=== PATIENT | male | born 1995 | race Caucasian/White ===

== ENCOUNTER 2018-03-17 05:49 | Emergency (ER) | payer OTHER ==
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
[2018-03-17 06:32] LABS: ABSOLUTE MONOCYTES (AUTO) 0.3 10^3/uL (0.1-1.4); ABSOLUTE NEUT (AUTO) 5.2 10^3/uL (1.7-8.2); HEMATOCRIT 43.2 % (37.9-51.0); TOTAL CELLS COUNTED % (AUTO) 100 %
[2018-03-17 06:39] LABS: APPEARANCE,URINE CLEAR; BILIRUBIN,URINE NEGATIVE (NEGATIVE); COLOR,URINE STRAW; GLUCOSE, URINE NEGATIVE (NEGATIVE); KETONES,URINE NEGATIVE (NEGATIVE); LEUKOCYTE ESTERASE,URINE NEGATIVE (NEGATIVE); NITRITE,URINE NEGATIVE (NEGATIVE); PROTEIN,URINE NEGATIVE (NEGATIVE); URINE SPECIFIC GRAVITY 1.003; UROBILINOGEN,URINE NEGATIVE mg/dL (<2.0)
[2018-03-17 06:43] LABS: ABSOLUTE LYMPHOCYTES (AUTO) 1.7 10^3/uL (0.5-4.7); BASOPHILS % (AUTO) 0.2 % (0-2); EOSINOPHILS % (AUTO) 0.3 % (0-6); HEMOGLOBIN 15.5 g/dL (13.5-17.0); LYMPHOCYTES % (AUTO) 23.3 % (13-45); MEAN CORPUSCULAR HEMOGLOBIN 30.4 pg (27.0-33.4); MEAN CORPUSCULAR HGB CONC 35.9 g/dL (32.0-36.0); MEAN CORPUSCULAR VOLUME 85 fl (80-97); MONOCYTES % (AUTO) 4.2 % (3-13); PLATELET COUNT 223 10^3/uL (150-450); RED CELL DISTRIBUTION WIDTH 12.9 % (11.5-14.0); WHITE BLOOD COUNT 7.2 10^3/uL (4.0-10.5)
[2018-03-17 06:50] LABS: ALANINE AMINOTRANSFERASE 45 U/L (21-72); ALBUMIN 5.2 g/dL (3.5-5.0); ALCOHOL 121 mg/dL (NONE DETECTED); ALKALINE PHOSPHATASE 81 U/L (38-126); ANION GAP 13 (5-19); ASPARTATE AMINO TRANSFERASE 32 U/L (17-59); BILIRUBIN,DIRECT 0.2 mg/dL (0.0-0.4); BILIRUBIN,TOTAL 0.4 mg/dL (0.2-1.3); BLOOD UREA NITROGEN 13 mg/dL (7-20); CALCIUM 10.1 mg/dL (8.4-10.2); CARBON DIOXIDE 26 mmol/L (22-30); CHLORIDE 107 mmol/L (98-107); GLUCOSE 97 mg/dL (75-110); POTASSIUM 4.1 mmol/L (3.6-5.0); TOTAL PROTEIN 8.1 g/dL (6.3-8.2)
[2018-03-17 06:56] LABS: ACETAMINOPHEN < 10 ug/mL (10-30); SALICYLATE < 1.0 mg/dL (2.0-20.0)
[2018-03-17 06:59] LABS: URINE AMPHETAMINES SCREEN NEGATIVE; URINE BARBITURATES SCREEN NEGATIVE; URINE BENZODIAZEPINES SCREEN NEGATIVE; URINE COCAINE SCREEN NEGATIVE; URINE MARIJUANA (THC) SCREEN NEGATIVE; URINE METHADONE SCREEN NEGATIVE; URINE PHENCYCLIDINE SCREEN NEGATIVE
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
--- NOTE | 2018-03-17 08:49 | EKG REPORT ---
SEVERITY:- NORMAL ECG - SINUS RHYTHM : Confirmed by: Neymar Douglass MD 17-Mar-2018 08:48:36
[2018-03-17] MEDS ORDERED: ONDANSETRON 4 MG TAB.RAPDIS ONE (10:24)
--- NOTE | 2018-03-17 10:26 | PSYCHOLOGICAL NOTE ---
Psych Note - Psych Note Date seen by psych provider: 03/17/18 Time seen by psych provider: 08:50 Psych Note: Reason for Consult: Suicide attempt Patient arrived to [facility] via EMS. Patient is active duty [employer]. He attempted to kill himself by joining multple zip strips and putting around his neck and tightened. This resulted on a blood nose and petechiae on his face. Patient did cut himself loose just before passing out. Patient disclosed he came to [facility] via EMS after his called 911. He reports that when police arrived, they are the ones that called EMS. He states that he attempted to commit suicide by joining 3 zip ties together and putting around his throat. He confirms he started drinking at approximately midnight after unsuccessfully attempting to picker tender his . He states he has been sick all week with the flu, she reported that she was going to go visit a friend. He reports this friend, Lukas,is a friend he does not really know and feels that his is being unfaithful. He reports that he was texting with Lukas and was told that he (the patient) was "walking on eggs shells" that his wanted to get . He reports that he was shocked because he never heard this before from her. He reports that he text back it would be easier than if she was just a . He states that at that point he was not thinking of harming himself he was just saying that to see if they were actually together. He reports that it was confirmed they were together when he immediately received a text message from her. At that point he became overwhelmed and felt "worthless." He reports that he had tightened the zip strips up until he heard a knock at the door. He reports that he is not exactly sure what happened however something snapped in him telling him that it was "not the right decision." He reports that he was trying to find something to cut open the zip ties. First he attempted using a pocket knife however was unsuccessful so had to find scissors. He reports that just prior to finding the scissors was when his nose started to bleed. He reports he did successfully get zip ties off of his neck. He states he feels "ashamed" and knows that alcohol up played "an effect into it." He reports that he does not drink often maybe 1 beer every 2 weeks or so. He disclosed that he used to be a big drinker while station [facility] between June 2015 to June 2017. He states that he was in "[employer] training" in [facility] which last in 1 week. He states that he felt that it really helped him. He described the events that led him to that training, reporting that he was highly intoxicated and wanted to go for a run. He reports that he got into his PT gear and was trying to leave. He states "they" were attempting to stop him from leaving. He became angry so he decided he was going to try to go out the window. He reports that he was so intoxicated that he did not really think about the fact he was on the fourth floor. "They took that as an attempt" of him trying to harm himself from jumping out the window. He reports that this is the first time he consciously attempted to harm himself however is glad that he is not seriously injured; "but I know I look horrible right now." Patient is alert and orientated to person, place, time and circumstance. Mood is dysphoric with overall blunted affect; does get tearful at times. Patient admits to attempting to strangle himself with intent to kill. Patient denies homicidal ideation. Delusions are absent behaviors congruent with an intact reality based presentation i.e. organized linear thought process. Eye contact is fair. Conversational speech is within normal rate, tone and prosody. Intellectual abilities appear to be within the average range. Attention and concentration are fair. Insight, judgment, impulse control are fair. No medication recommendations at this time 311 (F32.9) unspecified depressive disorder 291.9 (F10.99) unspecified alcohol related disorder Impression\\plan: Patient is recommended for IVC. Patient admits to attempting to kill himself by strangulation. Will patient discusses remorse and being glad he was unsuccessful patient clearly needs treatment assistance. Patient is active duty and became of his serious attempt at killing himself, he will be transferred to [facility] for psychiatric treatment. Dr. Vásquez of [facility] accepted patient as medical; transportation will occur today. Dr. Campuzano was consulted and the care management of this patient; attending physician agreement with recommendations and disposition.
[2018-03-17 12:22] VITALS: BP 126/83
== END 2018-03-17 12:52 ==
LOC: ER 05:49
DX: T71.192A Asphyxiation due to mechanical threat to breathing due to other causes, intentional self-harm, initial encounter (principal); R45.851 Suicidal ideations; M54.2 Cervicalgia; R04.0 Epistaxis; F10.99 Alcohol use, unspecified with unspecified alcohol-induced disorder; F32.1 Major depressive disorder, single episode, moderate; X83.8XXA Intentional self-harm by other specified means, initial encounter
CPT/HCPCS: 93005; 99285; 36415; 82962; 80307 ×4; 85025; 80053; 81001; 70450; 70498; 93010; S0119